=== PATIENT | female | born 1985 | race African-American/Black ===

== ENCOUNTER 2017-12-17 13:43 | Emergency (ER) | payer MEDICAID ==
[~2017-12-17] VITALS: Ht 172.7 cm; Wt 68.0 kg
--- NOTE | 2017-12-17 13:52 | Emergency Room Report ---
History of Present Illness General Chief Complaint: Overdose Source: Patient, EMS (Omari Martinez M.D.) Present Illness HPI Patient is brought by EMS with [employer]. Patient allegedly positive for opiates. She did flag down someone and asked for help. She said that she is suicidal. She stated she wanted to overdose on drugs. Paramedics found the patient with pinpoint pupils and decreased respirations and gave her 2 mg of Narcan intranasally approximately 10 minutes prior to arrival. They believe she did respond to this but is still lethargic. The patient was released from [facility] yesterday after being evaluated for abusing cocaine and methamphetamine. She had been on a 5150 and apparently was released to the streets. The patient refuses to give other history at this time and is somnolent. (Omari Martinez M.D.) Allergies: Coded Allergies: No Known Allergies (Unverified , 12/17/17) Patient History Past Medical History: see triage record Social History: Reports: drug use Social History Narrative patient gave a home address Last Menstrual Period: Reviewed Nursing Documentation: PMH: Agreed; PSxH: Agreed (Omari Martinez M.D.) Nursing Documentation-PMH Past Medical History: No Stated History (Omari Martinez M.D.) Review of Systems All Other Systems: limited (Omari Martinez M.D.) Physical Exam Vital Signs Date Time Temp Pulse Resp B/P (MAP) Pulse Ox O2 Delivery O2 Flow Rate FiO2 12/17/17 13:33 97.6 85 16 136/87 98 Room Air 97.5 Sp02 EP Interpretation: reviewed, normal General Appearance: well appearing, no apparent distress, GCS 15, lethargic Head: normocephalic Eyes: bilateral eye normal inspection, bilateral eye PERRL ENT: moist mucus membranes Neck: supple Respiratory: lungs clear, normal breath sounds Cardiovascular #1: regular rate, rhythm Cardiovascular #2: 2+ radial (R) Gastrointestinal: normal inspection, normal bowel sounds, non tender, no mass, non-distended, overweight Musculoskeletal: back normal, gait/station normal, normal range of motion Neurologic: alert, responsive, motor strength/tone normal, sensory intact, speech normal - Slightly slurred, oriented - 2 without wanted to answe Psychiatric: no suicidal/homicidal ideation, depressed affect Skin: normal inspection, warm/dry (Omari Martinez M.D.) Medical Decision Making Diagnostic Impression: Primary Impression: Drug overdose Qualified Codes: T50.901A - Poisoning by unspecified drugs, medicaments and biological substances, accidental (unintentional), initial encounter Additional Impressions: Suicidal ideation Drug abuse ER Course Patient presents with suicidal ideation and allegedly opiate overdose. Differential includes suicidal gesture, other toxic drug ingestion, which light imbalance, pulmonary edema amongst others. The patient evaluated with EKG, chest x-ray and labs. She will receive IV hydration and another dose of Narcan and we will attempt to get more history after that. She'll be placed on a [employer]. [employer] is placing the patient on 5150. Labs significant for + amphetamine but negative opiates. CBC and CMP negative. CK elevated. CXR clear. Given this, patient's sleepiness probably related to rebound from amphetamine use. Patient ambulates to bathroom without difficulty. Patient still refuses to talk to ERMD. Patient sleeping with VS stable. Medically cleared for psychiatric evaluation. Laboratory Tests Test 12/17/17 14:45 12/17/17 17:11 12/17/17 19:15 Sodium Level 140 MMOL/L (136-145) Potassium Level 4.0 MMOL/L (3.5-5.1) Chloride Level 102 MMOL/L (98-107) Carbon Dioxide Level 26 MMOL/L (21-32) Anion Gap 12 mmol/L (5-15) Blood Urea Nitrogen 16 mg/dL (7-18) Creatinine 0.9 MG/DL (0.55-1.30) Estimate Glomerular Filtration Rate > 60 mL/min (>60) Glucose Level 85 MG/DL (74-106) Calcium Level 9.8 MG/DL (8.5-10.1) Total Bilirubin 0.3 MG/DL (0.2-1.0) Aspartate Amino Transferase (AST) 28 U/L (15-37) Alanine Aminotransferase (ALT) 36 U/L (12-78) Alkaline Phosphatase 33 U/L (46-116) L Total Creatine Kinase 317 U/L (26-308) H Total Protein 8.9 G/DL (6.4-8.2) H Albumin 4.1 G/DL (3.4-5.0) Globulin 4.8 g/dL Albumin/Globulin Ratio 0.9 (1.0-2.7) L Salicylates Level 1.2 ug/mL (2.8-20) L Acetaminophen Level < 2 MCG/ML (10-30) L Serum Alcohol < 3 mg/dL White Blood Count 8.8 K/UL (4.8-10.8) Red Blood Count 4.93 M/UL (4.20-5.40) Hemoglobin 13.7 G/DL (12.0-16.0) Hematocrit 41.3 % (37.0-47.0) Mean Corpuscular Volume 84 FL (80-99) Mean Corpuscular Hemoglobin 27.7 PG (27.0-31.0) Mean Corpuscular Hemoglobin Concent 33.1 G/DL (32.0-36.0) Red Cell Distribution Width 12.6 % (11.6-14.8) Platelet Count 325 K/UL (150-450) Mean Platelet Volume 6.6 FL (6.5-10.1) Neutrophils (%) (Auto) 64.4 % (45.0-75.0) Lymphocytes (%) (Auto) 24.6 % (20.0-45.0) Monocytes (%) (Auto) 7.9 % (1.0-10.0) Eosinophils (%) (Auto) 2.4 % (0.0-3.0) Basophils (%) (Auto) 0.7 % (0.0-2.0) Urine HCG, Qualitative Negative (NEGATIVE) Urine Opiates Screen Negative (NEGATIVE) Urine Barbiturates Screen Negative (NEGATIVE) Phencyclidine (PCP) Screen Negative (NEGATIVE) Urine Amphetamines Screen Positive (NEGATIVE) H Urine Benzodiazepines Screen Negative (NEGATIVE) Urine Cocaine Screen Negative (NEGATIVE) Urine Marijuana (THC) Screen Negative (NEGATIVE) (Omari Martinez M.D.) ER Course Patient signout to me. She presents with suicidal thoughts and possible drug overdose. Clinically stable here. Walking around without any difficulty. She is medically clear from my standpoint for psychiatric evaluation. (LORI TORRES M.D.) Rhythm Strip Diag. Results EP Interpretation: yes Rhythm: no PVC's, no ectopy, other - ST (Omari Martinez M.D.) Chest X-Ray Diagnostic Results Chest X-Ray Diagnostic Results : Chest X-Ray Ordered: Yes # of Views/Limited/Complete: 1 View Indication: Other EP Interpretation: Yes Interpretation: no consolidation, no effusion, no pneumothorax Impression: No acute disease Electronically Signed by: Omari Martinez MD (Omari Martinez M.D.) Last Vital Signs Date Time Temp Pulse Resp B/P (MAP) Pulse Ox O2 Delivery O2 Flow Rate FiO2 12/17/17 17:21 97.5 16 134/80 98 Room Air 97.5 12/17/17 14:18 85 Status: improved (Omari Martinez M.D.) Status: improved (LORI TORRES M.D.) Disposition: XFER TO PSYCH HOSP/UNIT Condition: Stable Omari Martinez M.D. Dec 17, 2017 13:52 LORI TORRES M.D. Dec 17, 2017 23:39
[2017-12-17] MEDS ORDERED: Naloxone 1mg/ml 2ml IVP ONE (14:00)
[2017-12-17 14:18] VITALS: BP 127/77
--- NOTE | 2017-12-17 14:49 | Diagnostic Imaging Report ---
Indication: Altered level of consciousness Technique: XRAY Chest 1v Comparison: None Findings: Probable cardiomegaly although heart size exaggerated on AP projection. Mediastinal contours are sharp. No focal airspace consolidation, pleural effusion or pneumothorax. No acute osseous abnormality. IMPRESSION: No radiographic evidence of acute cardiopulmonary disease. Probable cardiomegaly.
[2017-12-17 15:13] LABS: ANION GAP 12 mmol/L (5-15); BLOOD UREA NITROGEN 16 mg/dL (7-18); CALCIUM 9.8 MG/DL (8.5-10.1); CARBON DIOXIDE 26 MMOL/L (21-32); CHLORIDE 102 MMOL/L (98-107); CREATININE 0.9 MG/DL (0.55-1.30); SODIUM 140 MMOL/L (136-145)
[2017-12-17 15:18] LABS: ALANINE AMINOTRANSFERASE 36 U/L (12-78); ALBUMIN 4.1 G/DL (3.4-5.0); ALBUMIN/GLOBULIN RATIO 0.9 (1.0-2.7); ALKALINE PHOSPHATASE 33 U/L (46-116); ASPARTATE AMINO TRANSFERASE 28 U/L (15-37); BILIRUBIN,TOTAL 0.3 MG/DL (0.2-1.0); CREATINE KINASE 317 U/L (26-308)
[2017-12-17 17:21] VITALS: BP 134/80
[2017-12-17 17:30] LABS: BASOPHILS % (AUTO) 0.7 % (0.0-2.0); EOSINOPHILS % (AUTO) 2.4 % (0.0-3.0); HEMATOCRIT 41.3 % (37.0-47.0); HEMOGLOBIN 13.7 G/DL (12.0-16.0); LYMPHOCYTES % (AUTO) 24.6 % (20.0-45.0); MEAN CORPUSCULAR VOLUME 84 FL (80-99); MONOCYTES % (AUTO) 7.9 % (1.0-10.0); NEUTROPHILS % (AUTO) 64.4 % (45.0-75.0); PLATELET COUNT 325 K/UL (150-450); RED BLOOD COUNT 4.93 M/UL (4.20-5.40); RED CELL DISTRIBUTION WIDTH 12.6 % (11.6-14.8); WHITE BLOOD COUNT 8.8 K/UL (4.8-10.8)
[2017-12-17 19:30] VITALS: BP 131/53
[2017-12-17 23:15] VITALS: BP 134/66
[2017-12-18 03:47] VITALS: BP 135/68
[2017-12-18 05:26] VITALS: BP 132/68
[2017-12-18 06:38] VITALS: BP 106/91
[2017-12-18 08:00] VITALS: BP 134/88
[2017-12-18] MEDS ORDERED: fluPHENAZine Decanoate 25mg Inj IM ONE (11:30)
[2017-12-18] MEDS ORDERED: fluPHENAZine Decanoate 25mg Inj IM SCH (12:00)
[2017-12-18 12:10] VITALS: BP 130/79
--- NOTE | 2017-12-18 16:55 | Cardiology Report ---
APPROVED REPORT EKG Measurement Heart [id number] Sinus rhythm with marked sinus arrhythmia Otherwise normal ECG
--- NOTE | 2017-12-19 12:34 | Consultation ---
History of Present Illness General Date patient seen: December 18, 2017 Chief Complaint: Overdose Present Illness HPI this is the late entry the pt is a 32 yo female Patient is brought by EMS with [employer]. Patient allegedly positive for meth. She did flag down someone and asked for help. She said that she is suicidal. She stated she wanted to overdose on drugs. the pt was seen in er and was not suicidal nor homicidal the pt was scattered brain however was able to provide a safe plan. the pt was not having any avh Allergies: Coded Allergies: No Known Allergies (Unverified , 12/17/17) Patient History Limited by: medical condition History Provided By: Patient, Medical Record, PMD Healthcare decision maker Resuscitation status Advanced Directive on File Past Medical/Surgical History Past Medical/Surgical History: (1) Methamphetamine use Review of Systems Psychiatric: Reports: prior hx, anxiety, depressed feelings, emotional problems Physical Exam General Appearance: WD/WN, no apparent distress, alert Neurologic: oriented x 3, responsive, depressed affect Height (Feet): 5 Height (Inches): 8.00 Weight (Pounds): 150 Assessment/Plan Assessment/Plan crystal meth use not a dts will dc Panfilo Fernandes M.D. December 19, 2017 12:34
== END 2017-12-18 12:15 | disposition home or self-care (01) ==
LOC: EDBD 13:43 → EMR 13:56
DX: T40.602A Poisoning by unspecified narcotics, intentional self-harm, initial encounter (principal); Y92.9 Unspecified place or not applicable; F15.10 Other stimulant abuse, uncomplicated
CPT/HCPCS: 36415; 71045; 80053; 80307; 80329; 81025; 82550; 85025; 93005; 96374; 99284; J2310; J2680